=== PATIENT | female | born 1950 | race Two or more races ===

== ENCOUNTER 2020-08-26 19:36 | Inpatient (IN) | payer OTHER ==
[~2020-08-26] VITALS: Ht 154.9 cm; Wt 73.5 kg
[2020-08-26] MEDS ORDERED: ONDANSETRON HCL 4 MG/2 ML VIAL IV ONE (20:30)
[2020-08-26] MEDS ORDERED: SODIUM CHLORIDE 0.9% 1,000 ML IVB ONE (20:30)
[2020-08-26 22:33] LABS: Basophils # (auto) 0 10 ^3/uL (0-0.2); Basophils % (auto) 0.1 % (0.0-2.0); Eosinophils # (auto) 0 10 ^3/uL (0-0.8); Hematocrit 42.4 % (36.0-46.0); Hemoglobin 14.5 g/dL (12.2-16.2); Lymphocytes # (auto) 0.3 10 ^3/uL (0.4-5.4); Lymphocytes % (auto) 2.5 % (10.0-50.0); Mean Corpuscular Hemoglobin 30.2 pg (28.0-32.0); Mean Corpuscular Hgb Conc. 34.1 g/dL (32.0-36.0); Mean Corpuscular Volume 88.4 fL (80.0-100.0); Monocytes # (auto) 0.1 10 ^3/uL (0-1.3); Monocytes % (auto) 0.7 % (0.0-12.0); Neutrophils # (auto) 11.4 10 ^3/uL (1.6-8.6); Neutrophils % (auto) 96.7 % (37.0-80.0); Nucleated Red Blood Cells % 0.1 %; Red Blood Cells 4.79 10^6/uL (4.0-5.20); Red Cell Distribution Width 13.9 % (11.8-14.3); White Blood Cell 11.8 10^3/uL (4.4-10.8)
[2020-08-26 22:48] LABS: Magnesium 2.2 mg/dL (1.6-2.6); Potassium 3.9 mmol/L (3.5-5.1)
[2020-08-26 22:54] LABS: INR 1.03 (0.9-1.15); Partial Thromboplastin Time 23.7 sec (23.0-31.2)
[2020-08-26 22:55] LABS: Albumin 3.7 g/dL (3.4-5.0); BUN/Creatinine Ratio 16.7; Bilirubin, Total 1.9 mg/dL (0.2-1.0); Calcium 9.1 mg/dL (8.5-10.1); Total Protein 8.4 g/dL (6.4-8.2)
[2020-08-27] MEDS ORDERED: NITROGLYCERIN 0.4 MG SL TAB SL PRN (01:00)
[2020-08-27] MEDS ORDERED: SODIUM CHLORIDE 0.9% 1,000 ML IV ONE ×2 (01:00→12:30)
[2020-08-27] MEDS ORDERED: MORPHINE SULFATE INJECTION 2 MG/ML SYRG IV PRN (01:00)
[2020-08-27] MEDS ORDERED: DEXTROSE (50%) 50ML SYRG IV PRN (01:15)
[2020-08-27] MEDS: ONDANSETRON HCL 4 MG/2 ML VIAL IV PRN ×2 (03:20→19:59)
[2020-08-27] MEDS: MORPHINE SULFATE INJECTION 2 MG/ML SYRG IV PRN (03:21)
[2020-08-27] MEDS: InsuLIN REG 1unit/0.01ml Soln (100units/ml) SC SCH ×6 (03:57→23:17)
[2020-08-27] MEDS: ACCU-CHEK COMFORT CURVE STRIP VI SCH ×6 (03:57→23:16)
[2020-08-27] MEDS: metroNIDAZOLE 500MG/100ML 100 ML IV SCH ×3 (05:27→22:30)
[2020-08-27 08:25] LABS: Basophils # (auto) 0 10 ^3/uL (0-0.2); Eosinophils # (auto) 0 10 ^3/uL (0-0.8); Hematocrit 39.6 % (36.0-46.0); Hemoglobin 13.5 g/dL (12.2-16.2); Lymphocytes # (auto) 0.3 10 ^3/uL (0.4-5.4); Lymphocytes % (auto) 3.9 % (10.0-50.0); Mean Corpuscular Hemoglobin 29.9 pg (28.0-32.0); Mean Corpuscular Volume 88.1 fL (80.0-100.0); Monocytes # (auto) 0.1 10 ^3/uL (0-1.3); Monocytes % (auto) 1.2 % (0.0-12.0); Neutrophils # (auto) 7.5 10 ^3/uL (1.6-8.6); Neutrophils % (auto) 94.9 % (37.0-80.0); White Blood Cell 7.9 10^3/uL (4.4-10.8)
[2020-08-27] MEDS ORDERED: ACETAMINOPHEN 500 MG TAB PO ONE (08:30)
[2020-08-27 08:55] LABS: Albumin 3.1 g/dL (3.4-5.0); Calcium 8.3 mg/dL (8.5-10.1)
[2020-08-27 08:59] LABS: Bilirubin, Total 3.5 mg/dL (0.2-1.0); Total Protein 7.3 g/dL (6.4-8.2)
[2020-08-27 09:35] LABS: Lactic Acid w/Reflex 3.2 mmol/L (0.4-2.0)
[2020-08-27] MEDS: CIPROFLOXACIN 400MG/200ML 200 ML IV SCH ×2 (10:03→21:01)
[2020-08-27 11:51] LABS: Urine Bacteria NONE SEEN /hpf (None Seen); Urine Blood Negative /uL (Negative); Urine Mucus FEW (None Seen); Urine Specific Gravity 1.023 (1.001-1.035); Urine WBC 4 /hpf (0 - 5)
[2020-08-27] MEDS: SODIUM CHLORIDE 0.9% 1,000 ML IV SCH ×2 (12:46→19:10)
[2020-08-27] MEDS: HYDROmorphone HCL 2 MG/ML VL IV PRN (19:59)
[2020-08-27 20:10] VITALS: BP 101/42
[2020-08-27 21:00] VITALS: BP 101/42
[2020-08-28] MEDS ORDERED: ATOR40TA52 PO (00:52)
[2020-08-28] MEDS ORDERED: CALC1TAB78 PO (00:52)
[2020-08-28] MEDS ORDERED: ASPI-543 PO (00:52)
[2020-08-28] MEDS ORDERED: METF-370 PO (00:52)
[2020-08-28] MEDS ORDERED: OMEP20TA PO (00:52)
[2020-08-28] MEDS ORDERED: PNEUMOCOCCAL VACC POLYS 25 MCG/0.5 ML VIAL IM ONE (01:00)
[2020-08-28] MEDS: SODIUM CHLORIDE 0.9% 1,000 ML IV SCH ×4 (01:50→18:49)
[2020-08-28] MEDS: InsuLIN REG 1unit/0.01ml Soln (100units/ml) SC SCH ×6 (04:00→23:49)
[2020-08-28] MEDS: ACCU-CHEK COMFORT CURVE STRIP VI SCH ×6 (04:15→23:49)
[2020-08-28] MEDS: metroNIDAZOLE 500MG/100ML 100 ML IV SCH ×2 (05:32→16:42)
[2020-08-28 06:01] VITALS: BP 175/53
[2020-08-28] MEDS ORDERED: IOHEXOL 300 MG/ML 100ML BOTTLE IJ ONE (07:28)
[2020-08-28 08:00] VITALS: BP 100/59
[2020-08-28] MEDS: PIPERACILLIN-TAZOB 3.375GM 100 ML IV SCH ×2 (08:00→17:55)
[2020-08-28] MEDS ORDERED: fentaNYL CITRATE 100 MCG/2 ML VL ONE (08:22)
[2020-08-28] MEDS ORDERED: MIDAZOLAM HCL 2MG/2ML 2ml VIAL (1mg/ml) ONE (08:22)
[2020-08-28] MEDS ORDERED: LIDOCAINE 2%HCL (LOCAL ANESTH.) INJ 20ML MDV ONE (08:28)
[2020-08-28] MEDS ORDERED: PROPOFOL 10 MG/ML 20 ML IV ONE (08:45)
[2020-08-28] MEDS: CIPROFLOXACIN 400MG/200ML 200 ML IV SCH ×2 (11:05→23:45)
[2020-08-28] MEDS: MORPHINE SULFATE INJECTION 2 MG/ML SYRG IV PRN (11:13)
[2020-08-28 16:00] VITALS: BP 124/59
[2020-08-28 17:14] LABS: Albumin 2.6 g/dL (3.4-5.0); Calcium 7.7 mg/dL (8.5-10.1); Potassium 4.1 mmol/L (3.5-5.1)
[2020-08-28 17:18] LABS: BUN/Creatinine Ratio 18.6; Bilirubin, Total 1.6 mg/dL (0.2-1.0); Total Protein 6.3 g/dL (6.4-8.2)
[2020-08-28 17:23] LABS: Basophils # (auto) 0 10 ^3/uL (0-0.2); Basophils % (auto) 0.2 % (0.0-2.0); Eosinophils # (auto) 0.2 10 ^3/uL (0-0.8); Eosinophils % (auto) 1.3 % (0.0-7.0); Hematocrit 35.1 % (36.0-46.0); Hemoglobin 11.6 g/dL (12.2-16.2); Lymphocytes # (auto) 1.1 10 ^3/uL (0.4-5.4); Mean Corpuscular Hemoglobin 29.6 pg (28.0-32.0); Mean Corpuscular Hgb Conc. 33.1 g/dL (32.0-36.0); Mean Corpuscular Volume 89.3 fL (80.0-100.0); Monocytes # (auto) 0.5 10 ^3/uL (0-1.3); Monocytes % (auto) 4.4 % (0.0-12.0); Neutrophils # (auto) 10.7 10 ^3/uL (1.6-8.6); Neutrophils % (auto) 85.1 % (37.0-80.0); Red Blood Cells 3.94 10^6/uL (4.0-5.20); Red Cell Distribution Width 14.6 % (11.8-14.3); White Blood Cell 12.6 10^3/uL (4.4-10.8)
[2020-08-28] MEDS: HYDROmorphone HCL 2 MG/ML VL IV PRN (23:48)
[2020-08-29] VITALS: BP 125/70
[2020-08-29] MEDS: metroNIDAZOLE 500MG/100ML 100 ML IV SCH ×3 (01:35→17:37)
[2020-08-29] MEDS: PIPERACILLIN-TAZOB 3.375GM 100 ML IV SCH ×3 (02:51→18:42)
[2020-08-29] MEDS: InsuLIN REG 1unit/0.01ml Soln (100units/ml) SC SCH ×6 (04:00→23:47)
[2020-08-29] MEDS: ACCU-CHEK COMFORT CURVE STRIP VI SCH ×6 (04:01→23:47)
[2020-08-29] MEDS: SODIUM CHLORIDE 0.9% 1,000 ML IV SCH ×2 (07:05→22:52)
[2020-08-29 08:00] VITALS: BP 131/62
[2020-08-29 08:26] LABS: Basophils # (auto) 0 10 ^3/uL (0-0.2); Basophils % (auto) 0.2 % (0.0-2.0); Eosinophils # (auto) 0 10 ^3/uL (0-0.8); Eosinophils % (auto) 0.4 % (0.0-7.0); Hemoglobin 11.7 g/dL (12.2-16.2); Lymphocytes # (auto) 1.7 10 ^3/uL (0.4-5.4); Lymphocytes % (auto) 14.3 % (10.0-50.0); Mean Corpuscular Hemoglobin 29.5 pg (28.0-32.0); Mean Corpuscular Hgb Conc. 33.5 g/dL (32.0-36.0); Mean Corpuscular Volume 87.9 fL (80.0-100.0); Monocytes # (auto) 0.7 10 ^3/uL (0-1.3); Monocytes % (auto) 5.6 % (0.0-12.0); Neutrophils # (auto) 9.3 10 ^3/uL (1.6-8.6); Neutrophils % (auto) 79.5 % (37.0-80.0); Red Blood Cells 3.98 10^6/uL (4.0-5.20); Red Cell Distribution Width 14.4 % (11.8-14.3); White Blood Cell 11.7 10^3/uL (4.4-10.8)
[2020-08-29 09:26] LABS: Calcium 7.8 mg/dL (8.5-10.1); Potassium 3.8 mmol/L (3.5-5.1)
[2020-08-29 09:33] LABS: Albumin 2.5 g/dL (3.4-5.0); BUN/Creatinine Ratio 16.3; Bilirubin, Total 1.2 mg/dL (0.2-1.0); Total Protein 6.5 g/dL (6.4-8.2)
[2020-08-29] MEDS: CIPROFLOXACIN 400MG/200ML 200 ML IV SCH ×2 (14:44→23:47)
[2020-08-29] MEDS: HYDROmorphone HCL 2 MG/ML VL IV PRN ×2 (14:45→23:48)
[2020-08-29 16:00] VITALS: BP 132/62
[2020-08-29 21:55] VITALS: BP 143/70
[2020-08-30] MEDS: metroNIDAZOLE 500MG/100ML 100 ML IV SCH ×3 (01:22→17:49)
[2020-08-30] MEDS: PIPERACILLIN-TAZOB 3.375GM 100 ML IV SCH ×3 (02:03→19:51)
[2020-08-30] MEDS: InsuLIN REG 1unit/0.01ml Soln (100units/ml) SC SCH ×6 (04:00→23:58)
[2020-08-30] MEDS: ACCU-CHEK COMFORT CURVE STRIP VI SCH ×6 (04:22→23:58)
[2020-08-30 05:00] VITALS: BP 122/52
[2020-08-30 08:00] VITALS: BP 126/67
[2020-08-30 08:25] LABS: Basophils # (auto) 0 10 ^3/uL (0-0.2); Basophils % (auto) 0.2 % (0.0-2.0); Eosinophils # (auto) 0 10 ^3/uL (0-0.8); Eosinophils % (auto) 0.3 % (0.0-7.0); Hematocrit 32.9 % (36.0-46.0); Hemoglobin 11.4 g/dL (12.2-16.2); Lymphocytes # (auto) 1.7 10 ^3/uL (0.4-5.4); Lymphocytes % (auto) 13.9 % (10.0-50.0); Mean Corpuscular Hemoglobin 30.2 pg (28.0-32.0); Mean Corpuscular Hgb Conc. 34.6 g/dL (32.0-36.0); Mean Corpuscular Volume 87.4 fL (80.0-100.0); Monocytes # (auto) 0.9 10 ^3/uL (0-1.3); Monocytes % (auto) 7.7 % (0.0-12.0); Neutrophils # (auto) 9.4 10 ^3/uL (1.6-8.6); Neutrophils % (auto) 77.9 % (37.0-80.0); Red Blood Cells 3.77 10^6/uL (4.0-5.20); White Blood Cell 12.1 10^3/uL (4.4-10.8)
[2020-08-30 09:01] LABS: Potassium 3.7 mmol/L (3.5-5.1)
[2020-08-30 09:07] LABS: Albumin 2.4 g/dL (3.4-5.0); BUN/Creatinine Ratio 13.6; Calcium 7.6 mg/dL (8.5-10.1)
[2020-08-30 09:10] LABS: Bilirubin, Total 1.2 mg/dL (0.2-1.0); Total Protein 6.1 g/dL (6.4-8.2)
[2020-08-30] MEDS: SODIUM CHLORIDE 0.9% 1,000 ML IV SCH ×2 (09:45→23:05)
[2020-08-30] MEDS ORDERED: SENNA 8.6 MG TAB PO SCH (10:00)
[2020-08-30] MEDS: SENNA 8.6 MG TAB PO SCH (10:24)
[2020-08-30] MEDS: CIPROFLOXACIN 400MG/200ML 200 ML IV SCH ×2 (13:06→23:57)
[2020-08-30 16:00] VITALS: BP 136/63
[2020-08-30 22:00] VITALS: BP 137/76
[2020-08-30] MEDS: HYDROmorphone HCL 2 MG/ML VL IV PRN (23:00)
[2020-08-31] MEDS: metroNIDAZOLE 500MG/100ML 100 ML IV SCH ×3 (01:08→17:34)
[2020-08-31] MEDS: PIPERACILLIN-TAZOB 3.375GM 100 ML IV SCH ×3 (02:16→18:55)
[2020-08-31] MEDS: InsuLIN REG 1unit/0.01ml Soln (100units/ml) SC SCH ×6 (04:00→23:46)
[2020-08-31] MEDS: ACCU-CHEK COMFORT CURVE STRIP VI SCH ×6 (04:17→23:46)
[2020-08-31 05:00] VITALS: BP 142/72
[2020-08-31 08:00] VITALS: BP 129/56
[2020-08-31 08:28] LABS: Basophils # (auto) 0 10 ^3/uL (0-0.2); Basophils % (auto) 0.1 % (0.0-2.0); Eosinophils # (auto) 0.1 10 ^3/uL (0-0.8); Eosinophils % (auto) 0.5 % (0.0-7.0); Hematocrit 37.6 % (36.0-46.0); Hemoglobin 12.8 g/dL (12.2-16.2); Lymphocytes # (auto) 1.7 10 ^3/uL (0.4-5.4); Lymphocytes % (auto) 15.4 % (10.0-50.0); Mean Corpuscular Hemoglobin 30.1 pg (28.0-32.0); Mean Corpuscular Hgb Conc. 34.1 g/dL (32.0-36.0); Mean Corpuscular Volume 88.4 fL (80.0-100.0); Monocytes # (auto) 1.1 10 ^3/uL (0-1.3); Monocytes % (auto) 10.3 % (0.0-12.0); Neutrophils # (auto) 8.1 10 ^3/uL (1.6-8.6); Neutrophils % (auto) 73.7 % (37.0-80.0); Nucleated Red Blood Cells % 0.1 %; Red Blood Cells 4.25 10^6/uL (4.0-5.20); Red Cell Distribution Width 14.2 % (11.8-14.3)
[2020-08-31 08:51] LABS: Albumin 2.7 g/dL (3.4-5.0); BUN/Creatinine Ratio 9.3; Bilirubin, Total 1.1 mg/dL (0.2-1.0); Calcium 7.8 mg/dL (8.5-10.1)
[2020-08-31 08:59] LABS: Potassium 2.9 mmol/L (3.5-5.1)
[2020-08-31] MEDS: SENNA 8.6 MG TAB PO SCH (10:00)
[2020-08-31] MEDS ORDERED: POTASSIUM CHL 10MEQ/100ML 100 ML IV SCH (12:00)
[2020-08-31] MEDS: CIPROFLOXACIN 400MG/200ML 200 ML IV SCH ×2 (12:00→23:40)
[2020-08-31] MEDS: POTASSIUM CHLORIDE IV SCH ×4 (12:54→21:53)
[2020-08-31] MEDS: SODIUM CHL 0.9% IV SCH ×4 (12:54→21:53)
[2020-08-31] MEDS: D5W/SOD CHL 0.45%/KCL 40MEQ 1,000 ML IV SCH ×2 (13:11→21:05)
[2020-08-31] MEDS: ONDANSETRON HCL 4 MG/2 ML VIAL IV PRN (21:36)
[2020-08-31 22:00] VITALS: BP 136/75
[2020-09-01] MEDS: metroNIDAZOLE 500MG/100ML 100 ML IV SCH ×3 (01:16→17:19)
[2020-09-01] MEDS: PIPERACILLIN-TAZOB 3.375GM 100 ML IV SCH ×3 (02:23→18:17)
[2020-09-01] MEDS: D5W/SOD CHL 0.45%/KCL 40MEQ 1,000 ML IV SCH ×3 (03:07→22:21)
[2020-09-01] MEDS: InsuLIN REG 1unit/0.01ml Soln (100units/ml) SC SCH ×6 (04:00→23:27)
[2020-09-01] MEDS: ACCU-CHEK COMFORT CURVE STRIP VI SCH ×6 (04:14→23:27)
[2020-09-01 05:00] VITALS: BP 124/57
[2020-09-01 08:00] VITALS: BP 134/55
[2020-09-01] MEDS: SENNA 8.6 MG TAB PO SCH (10:00)
[2020-09-01 10:58] LABS: Potassium 4.2 mmol/L (3.5-5.1)
[2020-09-01 11:23] LABS: INR 1.22 (0.9-1.15)
[2020-09-01] MEDS: CIPROFLOXACIN 400MG/200ML 200 ML IV SCH ×2 (13:18→23:27)
[2020-09-01] MEDS ORDERED: BUPIVACAINE 0.5% MPF INJ 30ML SDV IJ ONE (14:35)
[2020-09-01] MEDS ORDERED: SUCCINYLCHOLINE CHLORIDE 20 MG/ML 10ML VIAL IV ONE (14:36)
[2020-09-01] MEDS ORDERED: LIDOCAINE 1% (LOCAL ANESTH.) PF 5ml SDV ONE (14:36)
[2020-09-01] MEDS ORDERED: MIDAZOLAM HCL 2MG/2ML 2ml VIAL (1mg/ml) ONE (14:40)
[2020-09-01] MEDS ORDERED: METOCLOPRAMIDE HCL 5MG/ml INJ 2ml VIAL ONE (14:41)
[2020-09-01] MEDS ORDERED: ETOMIDATE (2MG/ML) 20ML VIAL IV ONE (14:43)
[2020-09-01] MEDS ORDERED: fentaNYL CITRATE 100 MCG/2 ML VL ONE (14:53)
[2020-09-01] MEDS ORDERED: NALOXONE HCL 0.4 MG/ML VIAL IV PRN (15:00)
[2020-09-01] MEDS ORDERED: HYDROmorphone HCL 2 MG/ML VL IV PRN ×2 (15:00)
[2020-09-01] MEDS ORDERED: ONDANSETRON HCL 4 MG/2 ML VIAL IV PRN (15:00)
[2020-09-01] MEDS ORDERED: ACCU-CHEK COMFORT CURVE STRIP VI ONE (15:00)
[2020-09-01] MEDS ORDERED: NEOSTIGMINE 1 MG/ML INJ (10mg/10ML VIAL) ONE (15:18)
[2020-09-01] MEDS ORDERED: GLYCOPYRROLATE 0.2 MG/ML 1ML VIAL ONE (15:18)
[2020-09-01] MEDS ORDERED: HYDROmorphone HCL 2 MG/ML VL IV ONE ×3 (15:52→16:20)
[2020-09-01 16:58] LABS: Basophils # (auto) 0 10 ^3/uL (0-0.2); Basophils % (auto) 0.3 % (0.0-2.0); Eosinophils # (auto) 0.1 10 ^3/uL (0-0.8); Eosinophils % (auto) 0.6 % (0.0-7.0); Hematocrit 39.6 % (36.0-46.0); Hemoglobin 12.5 g/dL (12.2-16.2); Lymphocytes % (auto) 19.7 % (10.0-50.0); Mean Corpuscular Hemoglobin 29.6 pg (28.0-32.0); Mean Corpuscular Hgb Conc. 31.6 g/dL (32.0-36.0); Mean Corpuscular Volume 93.6 fL (80.0-100.0); Monocytes # (auto) 1.1 10 ^3/uL (0-1.3); Monocytes % (auto) 11.3 % (0.0-12.0); Neutrophils # (auto) 6.8 10 ^3/uL (1.6-8.6); Neutrophils % (auto) 68.1 % (37.0-80.0); Nucleated Red Blood Cells % 0.1 %; Red Blood Cells 4.23 10^6/uL (4.0-5.20); Red Cell Distribution Width 14.8 % (11.8-14.3)
[2020-09-01] MEDS: HYDROmorphone HCL 2 MG/ML VL IV PRN (20:21)
[2020-09-01] MEDS ORDERED: ACETAMINOPHEN 325 MG TAB PO PRN (21:45)
[2020-09-01 22:00] VITALS: BP 128/81
[2020-09-02] MEDS: metroNIDAZOLE 500MG/100ML 100 ML IV SCH ×2 (00:49→08:12)
[2020-09-02] MEDS: PIPERACILLIN-TAZOB 3.375GM 100 ML IV SCH ×2 (01:58→10:31)
[2020-09-02] MEDS: HYDROmorphone HCL 2 MG/ML VL IV PRN ×2 (04:55→11:35)
[2020-09-02 05:00] VITALS: BP 125/73
[2020-09-02] MEDS: ACCU-CHEK COMFORT CURVE STRIP VI SCH ×3 (05:06→12:00)
[2020-09-02] MEDS: InsuLIN REG 1unit/0.01ml Soln (100units/ml) SC SCH ×3 (05:09→12:51)
[2020-09-02] MEDS: D5W/SOD CHL 0.45%/KCL 40MEQ 1,000 ML IV SCH (05:13)
[2020-09-02 08:00] VITALS: BP 112/61
[2020-09-02] MEDS ORDERED: HYDR-4833 PO (10:02)
[2020-09-02] MEDS: SENNA 8.6 MG TAB PO SCH (10:31)
[2020-09-02] MEDS ORDERED: NITROGLYCERIN 0.4 MG SL TAB SL PRN (13:45)
[2020-09-02] MEDS ORDERED: MORPHINE SULFATE INJECTION 2 MG/ML SYRG IV PRN (13:45)
[2020-09-02 14:07] VITALS: BP 112/61
== END 2020-09-02 16:25 | disposition home health service (06) | DRG 417 ==
LOC: ER 19:36 → OVERFLOW 08-27 00:54 → CENTRAL 08-27 20:10
PROVIDERS: ADMIT Internal Medicine; ATTEND Internal Medicine
PROC: BF101ZZ Fluoroscopy of Bile Ducts using Low Osmolar Contrast (ICD-10-PCS; 2020-08-28)
PROC: 0F778ZZ Dilation of Common Hepatic Duct, Via Natural or Artificial Opening Endoscopic (ICD-10-PCS; 2020-08-28)
PROC: 0FC98ZZ Extirpation of Matter from Common Bile Duct, Via Natural or Artificial Opening Endoscopic (ICD-10-PCS; principal; 2020-08-28 08:19)
PROC: 0FT44ZZ Resection of Gallbladder, Percutaneous Endoscopic Approach (ICD-10-PCS; 2020-09-01)
DX: K80.63 Calculus of gallbladder and bile duct with acute cholecystitis with obstruction (principal); K85.10 Biliary acute pancreatitis without necrosis or infection; I10 Essential (primary) hypertension; E87.6 Hypokalemia; E11.9 Type 2 diabetes mellitus without complications; Z20.822 Contact with and (suspected) exposure to COVID-19; E66.01 Morbid (severe) obesity due to excess calories; E78.5 Hyperlipidemia, unspecified; K59.00 Constipation, unspecified; Z82.49 Family history of ischemic heart disease and other diseases of the circulatory system; Z83.3 Family history of diabetes mellitus; Z90.710 Acquired absence of both cervix and uterus; Z68.30 Body mass index [BMI] 30.0-30.9, adult; Z90.49 Acquired absence of other specified parts of digestive tract
CPT/HCPCS: 36415; 71045; 74018; 74176; 76000; 76705; 80053; 81001; 82150; 82247; 82962; 83605; 83690; 83735; 84132; 85025; 85610; 85730; 86850; 86900; 86901; 87040; 87077; 87186; 87426; 93005; 93306; 96361; 96365; 96375; G0378; J0330; J1815; J2250; J2405; J2543; J2704; J3480; J3490